=== PATIENT | female | born 1970 | race Hispanic/Latino ===

== ENCOUNTER 2024-06-09 17:16 | Emergency (ER) | payer SELFPAY ==
--- NOTE | 2024-06-09 17:17 | ED_ITS ---
HPI - General Adult General Chief complaint: Nausea/Vomiting/Diarrhea Stated complaint: vomiting Time Seen by Provider: 06/09/24 17:35 Source: patient, RN notes reviewed, old records reviewed and translator/interpreter (Hebrew) Mode of arrival: ambulatory Limitations: no limitations History of Present Illness HPI narrative: 53-year-old female presents to the [facility] with concerns of vomiting. Patient is a diabetic. Has not been able to eat, drink. Has been vomiting since last night. Blood sugar in clinic is 351 Patient reports generalized abdominal pain as well, not reproducible with palpation. Onset (ago): day(s) (1) Treatments prior to arrival: none Review of Systems Review of Systems: All systems reviewed & are unremarkable except as noted in HPI and below Constitutional: Constitutional: Reports no additional constitutional complaints ENT: Reports system reviewed and no additional complaints, except as documented Cardiovascular: Cardiovascular: Reports no additional cardiovascular complaints, Denies chest pain and Denies dyspnea Respiratory: Respiratory: Reports no additional respiratory complaints, Denies chest congestion, Denies cough and Denies dyspnea Gastrointestinal: Gastrointestinal: Reports as per HPI, Reports abdominal pain, Reports nausea and Reports vomiting Musculoskeletal: Musculoskeletal: Reports no additional musculoskeletal complaints Integumentary/Breasts: Skin/Breast: Reports system reviewed and no additional complaints, except as docu [facility] Past Medical History Medical History (Updated 06/09/24 @ 17:57 by Zohra Bellamy APRN) Diabetes Comments At the time of my signature, I reviewed and agree with the nursing past medical, surgical, social, and family history. There is no relevant family history pertinent to the patient complaint. Exam Const: General: cooperative, no acute distress, well developed, alert, ill appearing acutely and chronically, tired appearing, uncomfortable and well nourished Nutritional Appearance: well nourished Orientation/consciousness: patient oriented x3 Limitations: no limitations HENMT: Head: normal to inspection Ears: hearing grossly normal bilaterally and external ears normal Face/Nose/Sinus: Normal external nose present, normal facial exam and face symmetric Face and sinus: normal facial exam and face symmetric Eyes: General: appearance normal, both eyes and all related structures Alignment and Position: alignment normal Periorbital: periorbital findings normal Neck: Neck: normal visual inspection, full ROM, no lymphadenopathy and no meningeal signs Chest: Chest palpation & inspection: normal inspection of the chest Resp: Effort & Inspection: normal respiratory effort and able to speak in complete sentences Cardio: Rate: regular rate GI: GI Palp: No abdominal tenderness and Yes Soft to palpation Auscultation: normal bowel sounds Skin: General skin exam: normal color and no rashes or lesions noted Lesions: no lesions Rashes: no rashes Wounds: no wounds Neuro: General: patient oriented x3, gait normal, tone normal, moves all extremities and no meningeal signs Cognition (Neuro): normal cognition Speech: normal speech Gait exam (Neuro): Normal gait present Extrem: General: normal to inspection, full ROM, capillary refill normal and normal gait Psych: Appearance: grossly normal and well kempt Mental Status: mental status grossly normal Speech and movement: Normal speech and movement present and Clear speech present Affect: normal affect Attitude: cooperative Course Course Level of Care: Express Care Visit Vital Signs Vital signs: Vital Signs Temperature 99.1 F 06/09/24 17:29 Pulse Rate 98 06/09/24 17:29 Respiratory Rate 16 06/09/24 17:29 Blood Pressure 135/66 06/09/24 17:29 Pulse Oximetry 99 06/09/24 17:29 Oxygen Delivery Room Air 06/09/24 17:29 Temperature 99.1 F 06/09/24 17:29 Pulse Rate 98 06/09/24 17:29 Respiratory Rate 16 06/09/24 17:29 Blood Pressure 135/66 06/09/24 17:29 Pulse Oximetry 99 06/09/24 17:29 Oxygen Delivery Room Air 06/09/24 17:29 Reviewed Transfer Transfered to: [place] Transportation: Other (POV) Transfer rationale: Patient with history of diabetes, elevated blood sugar in clinic. Patient appears dehydrated, ill in appearance sending for higher level care rule out DKA Patient has been vomiting since last night unable to keep fluids down Accepting physician: Spoke with Dr. Stallworth Medical Decision Making [facility] Narrative Medical decision making narrative: Patient sitting in exam room. Patient does appear uncomfortable. Vitals stable. Patient presents for for vomiting, elevated blood sugar. Sending for higher level of care Transfer instructions reviewed with patient and family member to go directly to the ER. This was verbalized through the science interpreter All questions have been answered, and the patient deny any further questions Some parts of this dictation were generated by voice recognition software and may contain typographical and/or grammatical inaccuracies. Differential Diagnosis Differential Diagnosis: DKA, pancreatitis, cholecystitis, gastroenteritis Medical Records Medical records reviewed: Yes I reviewed the external patient's medical records. Vital Signs Vital Signs: Vital Signs Temperature 99.1 F 06/09/24 17:29 Pulse Rate 98 06/09/24 17:29 Respiratory Rate 16 06/09/24 17:29 Blood Pressure 135/66 06/09/24 17:29 Pulse Oximetry 99 06/09/24 17:29 Oxygen Delivery Room Air 06/09/24 17:29 Temperature 99.1 F 06/09/24 17:29 Pulse Rate 98 06/09/24 17:29 Respiratory Rate 16 06/09/24 17:29 Blood Pressure 135/66 06/09/24 17:29 Pulse Oximetry 99 06/09/24 17:29 Oxygen Delivery Room Air 06/09/24 17:29 Reviewed Lab Data Lab results reviewed: Yes I reviewed the patient's lab results. Labs: Lab Results 06/09/24 Range/Units 17:44 POC Capillary Glucose 351 H (65-105) mg/dl Reviewed Critical Care Time Critical Care Time Critical Care Time: No Discharge Plan Discharge Clinical Impression: Elevated blood sugar Vomiting Qualifiers: Vomiting type: unspecified Nausea presence: unspecified Qualified Code(s): R11.10 - Vomiting, unspecified Patient Disposition: Acute Care Hospital Condition: Guarded Prognosis Follow-up/Referrals: Eyad,ROSMERY Ty [Primary Care Provider] -
[2024-06-09 17:29] VITALS: BP 135/66; PULSE 98; RESP 16; TEMP 37.3; O2SAT 99
[2024-06-09 17:51] LABS: Glucose Point of Care 351 mg/dl (65-105)
== END 2024-06-09 17:51 | disposition short-term general hospital (02) ==
PROVIDERS: Emergency Provider Nurse Practitioner; PCP Physician Assistant Medical
DX: E11.65 Type 2 diabetes mellitus with hyperglycemia (principal); R11.10 Vomiting, unspecified
CPT/HCPCS: 82948; 99212; G0463

== ENCOUNTER 2024-06-09 18:10 | Emergency (ER) | payer SELFPAY ==
[2024-06-09 18:38] VITALS: BP 123/89; PULSE 110; RESP 18; TEMP 36.4; O2SAT 100
[2024-06-09 18:49] LABS: Glucose Point of Care 357 mg/dl (65-105)
--- NOTE | 2024-06-09 18:49 | ED.RECABL ---
HPI - Recheck/Abnormal Lab/Rx General Chief Complaint: Recheck/Abnormal Lab/Rx <Eloise Weber PA-C - Last Filed: 06/09/24 18:52> Stated Complaint: VOMITING HIGH BS <Eloise Weber PA-C - Last Filed: 06/09/24 18:52> Time Seen by Provider: 06/09/24 18:45 <Eloise Weber PA-C - Last Filed: 06/09/24 18:52> Focused HPI: Patient is a 53-year-old female who presents the ED with report of vomiting. Patient is primarily Azerbaijani-speaking. [employer] pediatric critical care nurse was utilized for assistance with translation. Reports she has had persistent vomiting since last night. Unable to keep down any food or drink. Reports having pain throughout her upper abdomen. Denies diarrhea, constipation, fevers. Patient is an insulin-dependent diabetic. States her blood sugars have been elevated. BG upon arrival 357. GENERAL: Well-appearing, well-nourished, and in no acute distress. HEAD: Normocephalic, atraumatic. CHEST: Clear to auscultation. ?No respiratory distress. HEART: Tachycardic with regular rhythm.? NEURO: ?Alert and oriented x3. Patient screened in triage and initial orders placed.? ?Additional care and disposition to be based upon?diagnostic testing and treatment. <Eloise Weber PA-C - Last Filed: 06/09/24 18:52> Focused HPI: Patient is a 53-year-old female who presents the ED with report of vomiting. Patient is primarily Azerbaijani-speaking. [employer] pediatric critical care nurse was utilized for assistance with translation. Reports she has had persistent vomiting since last night. Unable to keep down any food or drink. Reports having pain throughout her upper abdomen. Denies diarrhea, constipation, fevers. Patient is an insulin-dependent diabetic. States her blood sugars have been elevated. BG upon arrival 357. GENERAL: Well-appearing, well-nourished, and in no acute distress. HEAD: Normocephalic, atraumatic. CHEST: Clear to auscultation. ?No respiratory distress. HEART: Tachycardic with regular rhythm.? NEURO: ?Alert and oriented x3. Patient screened in triage and initial orders placed.? ?Additional care and disposition to be based upon?diagnostic testing and treatment. Agree with triage assessment. Patient is Azerbaijani-speaking and Azerbaijani interpretation services were used to obtain the history of present illness. <George Alejandro MD - Last Filed: 06/10/24 01:14> Source: patient <GARCIA Andrade Last Filed: 06/09/24 18:52> Mode of arrival: ambulatory <Eloise Weber PA-C - Last Filed: 06/09/24 18:52> Limitations: no limitations and language barrier <GARCIA Andrade Last Filed: 06/09/24 18:52> Related Data Allergies/Adverse Reactions: Allergies Allergy/AdvReac Type Severity Reaction Status Date / Time No Known Allergies Allergy Verified 06/09/24 18:05 <Eloise Weber PA-C - Last Filed: 06/09/24 18:52> PMFSH Past Medical History Medical History: Medical History (Updated 06/10/24 @ 01:02 by George Alejandro MD) Diabetes <GARCIA Andrade Last Filed: 06/09/24 18:52> Course Vital Signs Vital signs: Vital Signs Temperature 97.5 F L 06/09/24 18:38 Pulse Rate 110 H 06/09/24 18:38 Respiratory Rate 18 06/09/24 18:38 Blood Pressure 123/89 06/09/24 18:38 Pulse Oximetry 100 06/09/24 18:38 Temperature 97.5 F L 06/09/24 18:38 Pulse Rate 91 06/09/24 23:03 Respiratory Rate 20 06/09/24 23:03 Blood Pressure 128/60 06/09/24 23:03 Pulse Oximetry 99 06/09/24 23:03 <GARCIA Andrade Last Filed: 06/09/24 18:52> Vital Signs Temperature 97.5 F L 06/09/24 18:38 Pulse Rate 110 H 06/09/24 18:38 Respiratory Rate 18 06/09/24 18:38 Blood Pressure 123/89 06/09/24 18:38 Pulse Oximetry 100 06/09/24 18:38 Temperature 97.5 F L 06/09/24 18:38 Pulse Rate 91 06/09/24 23:03 Respiratory Rate 20 06/09/24 23:03 Blood Pressure 128/60 06/09/24 23:03 Pulse Oximetry 99 06/09/24 23:03 <George Alejandro MD - Last Filed: 06/10/24 01:14> MDM - Recheck/Abnormal Lab/Rx MDM Narrative Medical decision making narrative: MSE by MARJ in triage. <Eloise Weber PA-C - Last Filed: 06/09/24 18:52> MSE by MARJ in triage. The patient was evaluated by myself in the emergency department. History is obtained from patient who is an independent historian and physical exam was performed. External medical records were reviewed at this time. IV was established and pertinent tests were ordered. Patient was administered 4 mg of IV Zofran and 20 mg of IV Pepcid. EKG was obtained which revealed sinus rhythm rate of 98 beats per Min. No ST changes, T wave inversions or evidence of acute ischemia. EKG was independently interpreted by me and is currently pending official cardiology read. Laboratory results obtained revealing a leukocytosis of 12.2, glucose 375, hemoglobin A1c of 11.3%, beta hydroxybutyrate 1.39. No anion gap acidosis noted. Urinalysis revealed 3+ ketones and 3+ glucose. At this time patient was administered 2 L IV fluid bolus with normal saline. Patient declined any additional workup including imaging as she has been waiting for 6 hours and wants to go home. I did inform the patient that she needs at least get the IV fluids prior to discharge and patient is agreeable. She is currently denying any abdominal pain and denies any symptoms. Patient has had no vomiting episodes in the emergency department. Differential diagnosis considerations include diabetic ketoacidosis, dehydration, electrolyte derangements, infectious process such as pneumonia/urinary tract infection. Comorbidities impacting this visit include history of diabetes, poor control. Patient denies any history of DKA or any previous ICU admission regarding her diabetes. I have evaluated and discussed social determinants of health with the patient that could potentially impact subsequent diagnosis and treatment plans. On repeat assessment of the patient, reevaluation revealed that the patient is doing well and is in no acute distress. Patient symptoms have improved since she arrived to our emergency department. Repeat vital signs were all reviewed and noted to be stable. Differential diagnosis and treatment plan were discussed with the patient at bedside. Patient agrees with discussion and after shared medical decision making agrees with discharge. All questions were answered to the patient's satisfaction. Patient will follow up with her PCP in 3-5 days. Patient was informed that her diabetes is poorly controlled as noted by her hemoglobin A1c and this needs to be further evaluated by her primary care physician urgently and patient voices understanding. Patient was provided with strict return precautions and instructed to return to the emergency department if any new or worsening symptoms develop. The patient was discharged in stable condition. <George Alejandro MD - Last Filed: 06/10/24 01:14> Lab Data Result diagrams: 06/09/24 18:51 06/09/24 18:51 <Eloise Weber PA-C - Last Filed: 06/09/24 18:52> Labs: Lab Results 06/09/24 06/09/24 06/09/24 Range/Units 18:42 18:51 21:15 WBC 12.2 H (4.5-10.0) K/mm3 RBC 5.06 (4.2-5.4) M/mm3 Hgb 14.9 (12.0-15.0) g/dL Hct 45.2 (37.0-47.0) % MCV 89.3 (80-100) fl MCH 29.4 (26-34) pg MCHC 33.0 (32-36) g/dl RDW 13.2 (11.5-14.5) % Plt Count 354 (150-375) k/mm3 MPV 9.4 (7.4-10.4) fl Immature Gran % (Auto) 0.2 (0-0.5) % Neut % (Auto) 84.3 H (45.5-73.1) % Lymph % (Auto) 11.8 L (18.3-44.2) % Williamson % (Auto) 3.5 (2.6-8.5) % Eos % (Auto) 0.0 (0-4.4) % Baso % (Auto) 0.2 (0.2-1.2) % Lymph # (Auto) 1.44 (0.9-3.2) K/mm3 Williamson # (Auto) 0.4 (0.1-0.6) K/mm3 Eos # (Auto) 0.0 (0-0.3) K/mm3 Baso # (Auto) 0.0 (0.0-0.1) K/mm3 Abs Immat Gran (auto) 0.03 (0.00-0.031) K/mm3 Absolute Neuts (auto) 10.2 H (1.3-6.7) K/mm3 Absolute Nucleated RBC 0.000 (0.0-0.012) K/mm3 Nucleated RBC % 0.0 (0.0-0.2) % Sodium 137 (137-145) mmol/L Potassium 4.4 (3.4-5.0) mmol/L Chloride 100 (98-107) mmol/L Carbon Dioxide 25 (22-30) mmol/L Anion Gap 12 (4-12) mmol/L BUN 21 H (7-17) mg/dL Creatinine 0.60 L (0.7-1.0) mg/dL Estim Creat Clear Calc Not Reportable Estimated GFR > 60 (59 - ) Glucose 375 H (65-110) mg/dL POC Capillary Glucose 357 H (65-105) mg/dl Hemoglobin A1c 11.3 H (<5.7) % Lactic Acid 1.9 (0.7-2.0) mmol/L Calcium 9.6 (8.4-10.2) mg/dL Phosphorus 4.0 (2.5-4.5) mg/dL Magnesium 2.0 (1.6-2.3) mg/dL Total Bilirubin 1.5 H (0.2-1.3) mg/dL AST 21 (14-36) U/L ALT 20 (6-35) U/L Alkaline Phosphatase 142 H (38-126) U/L Troponin I < 0.012 (0.000-0.034) ng/mL Total Protein 9.0 H (6.3-8.2) g/dL Albumin 4.8 (3.5-5.1) g/dL Lipase 50 (23-300) U/L Beta-Hydroxybutyrate/Acetoacetate 1.39 H (0.02-0.27) mmol/L Urine Color Yellow (Yellow) Urine Appearance Clear (Clear) Urine pH 5.5 (5.0-9.0) Ur Specific [employer] > 1.045 H (1.001-1.035) Urine Protein 2+ H (Negative) mg/dL Urine Glucose (UA) 3+ H (Negative) mg/dL Urine Ketones 3+ H (Negative) mg/dL Ur Blood (Man) Negative (Negative) Urine Nitrate Negative (Negative) Urine Bilirubin Negative (Negative) Urine Urobilinogen 0.2 (<2.0) mg/dL Leukocyte Esterase Rfl Negative (Negative) NABIL/UL Urine RBC 0-2 (0-2) /hpf Urine WBC 0-5 (0-3) /hpf Ur Squamous Epith Cells Few (Few) /hpf Urine Bacteria None seen /hpf Urine Casts 0-2 POC Urine HCG, Qual (Negative) 06/09/24 Range/Units 21:17 WBC (4.5-10.0) K/mm3 RBC (4.2-5.4) M/mm3 Hgb (12.0-15.0) g/dL Hct (37.0-47.0) % MCV (80-100) fl MCH (26-34) pg MCHC (32-36) g/dl RDW (11.5-14.5) % Plt Count (150-375) k/mm3 MPV (7.4-10.4) fl Immature Gran % (Auto) (0-0.5) % Neut % (Auto) (45.5-73.1) % Lymph % (Auto) (18.3-44.2) % Williamson % (Auto) (2.6-8.5) % Eos % (Auto) (0-4.4) % Baso % (Auto) (0.2-1.2) % Lymph # (Auto) (0.9-3.2) K/mm3 Williamson # (Auto) (0.1-0.6) K/mm3 Eos # (Auto) (0-0.3) K/mm3 Baso # (Auto) (0.0-0.1) K/mm3 Abs Immat Gran (auto) (0.00-0.031) K/mm3 Absolute Neuts (auto) (1.3-6.7) K/mm3 Absolute Nucleated RBC (0.0-0.012) K/mm3 Nucleated RBC % (0.0-0.2) % Sodium (137-145) mmol/L Potassium (3.4-5.0) mmol/L Chloride (98-107) mmol/L Carbon Dioxide (22-30) mmol/L Anion Gap (4-12) mmol/L BUN (7-17) mg/dL Creatinine (0.7-1.0) mg/dL Estim Creat Clear Calc Estimated GFR (59 - ) Glucose (65-110) mg/dL POC Capillary Glucose (65-105) mg/dl Hemoglobin A1c (<5.7) % Lactic Acid (0.7-2.0) mmol/L Calcium (8.4-10.2) mg/dL Phosphorus (2.5-4.5) mg/dL Magnesium (1.6-2.3) mg/dL Total Bilirubin (0.2-1.3) mg/dL AST (14-36) U/L ALT (6-35) U/L Alkaline Phosphatase (38-126) U/L Troponin I (0.000-0.034) ng/mL Total Protein (6.3-8.2) g/dL Albumin (3.5-5.1) g/dL Lipase (23-300) U/L Beta-Hydroxybutyrate/Acetoacetate (0.02-0.27) mmol/L Urine Color (Yellow) Urine Appearance (Clear) Urine pH (5.0-9.0) Ur Specific [employer] (1.001-1.035) Urine Protein (Negative) mg/dL Urine Glucose (UA) (Negative) mg/dL Urine Ketones (Negative) mg/dL Ur Blood (Man) (Negative) Urine Nitrate (Negative) Urine Bilirubin (Negative) Urine Urobilinogen (<2.0) mg/dL Leukocyte Esterase Rfl (Negative) NABIL/UL Urine RBC (0-2) /hpf Urine WBC (0-3) /hpf Ur Squamous Epith Cells (Few) /hpf Urine Bacteria /hpf Urine Casts POC Urine HCG, Qual Negative (Negative) <Eloise Weber PA-C - Last Filed: 06/09/24 18:52> Lab Results 06/09/24 06/09/24 06/09/24 Range/Units 18:42 18:51 21:15 WBC 12.2 H (4.5-10.0) K/mm3 RBC 5.06 (4.2-5.4) M/mm3 Hgb 14.9 (12.0-15.0) g/dL Hct 45.2 (37.0-47.0) % MCV 89.3 (80-100) fl MCH 29.4 (26-34) pg MCHC 33.0 (32-36) g/dl RDW 13.2 (11.5-14.5) % Plt Count 354 (150-375) k/mm3 MPV 9.4 (7.4-10.4) fl Immature Gran % (Auto) 0.2 (0-0.5) % Neut % (Auto) 84.3 H (45.5-73.1) % Lymph % (Auto) 11.8 L (18.3-44.2) % Williamson % (Auto) 3.5 (2.6-8.5) % Eos % (Auto) 0.0 (0-4.4) % Baso % (Auto) 0.2 (0.2-1.2) % Lymph # (Auto) 1.44 (0.9-3.2) K/mm3 Williamson # (Auto) 0.4 (0.1-0.6) K/mm3 Eos # (Auto) 0.0 (0-0.3) K/mm3 Baso # (Auto) 0.0 (0.0-0.1) K/mm3 Abs Immat Gran (auto) 0.03 (0.00-0.031) K/mm3 Absolute Neuts (auto) 10.2 H (1.3-6.7) K/mm3 Absolute Nucleated RBC 0.000 (0.0-0.012) K/mm3 Nucleated RBC % 0.0 (0.0-0.2) % Sodium 137 (137-145) mmol/L Potassium 4.4 (3.4-5.0) mmol/L Chloride 100 (98-107) mmol/L Carbon Dioxide 25 (22-30) mmol/L Anion Gap 12 (4-12) mmol/L BUN 21 H (7-17) mg/dL Creatinine 0.60 L (0.7-1.0) mg/dL Estim Creat Clear Calc Not Reportable Estimated GFR > 60 (59 - ) Glucose 375 H (65-110) mg/dL POC Capillary Glucose 357 H (65-105) mg/dl Hemoglobin A1c 11.3 H (<5.7) % Lactic Acid 1.9 (0.7-2.0) mmol/L Calcium 9.6 (8.4-10.2) mg/dL Phosphorus 4.0 (2.5-4.5) mg/dL Magnesium 2.0 (1.6-2.3) mg/dL Total Bilirubin 1.5 H (0.2-1.3) mg/dL AST 21 (14-36) U/L ALT 20 (6-35) U/L Alkaline Phosphatase 142 H (38-126) U/L Troponin I < 0.012 (0.000-0.034) ng/mL Total Protein 9.0 H (6.3-8.2) g/dL Albumin 4.8 (3.5-5.1) g/dL Lipase 50 (23-300) U/L Beta-Hydroxybutyrate/Acetoacetate 1.39 H (0.02-0.27) mmol/L Urine Color Yellow (Yellow) Urine Appearance Clear (Clear) Urine pH 5.5 (5.0-9.0) Ur Specific [employer] > 1.045 H (1.001-1.035) Urine Protein 2+ H (Negative) mg/dL Urine Glucose (UA) 3+ H (Negative) mg/dL Urine Ketones 3+ H (Negative) mg/dL Ur Blood (Man) Negative (Negative) Urine Nitrate Negative (Negative) Urine Bilirubin Negative (Negative) Urine Urobilinogen 0.2 (<2.0) mg/dL Leukocyte Esterase Rfl Negative (Negative) NABIL/UL Urine RBC 0-2 (0-2) /hpf Urine WBC 0-5 (0-3) /hpf Ur Squamous Epith Cells Few (Few) /hpf Urine Bacteria None seen /hpf Urine Casts 0-2 POC Urine HCG, Qual (Negative) 06/09/24 Range/Units 21:17 WBC (4.5-10.0) K/mm3 RBC (4.2-5.4) M/mm3 Hgb (12.0-15.0) g/dL Hct (37.0-47.0) % MCV (80-100) fl MCH (26-34) pg MCHC (32-36) g/dl RDW (11.5-14.5) % Plt Count (150-375) k/mm3 MPV (7.4-10.4) fl Immature Gran % (Auto) (0-0.5) % Neut % (Auto) (45.5-73.1) % Lymph % (Auto) (18.3-44.2) % Williamson % (Auto) (2.6-8.5) % Eos % (Auto) (0-4.4) % Baso % (Auto) (0.2-1.2) % Lymph # (Auto) (0.9-3.2) K/mm3 Williamson # (Auto) (0.1-0.6) K/mm3 Eos # (Auto) (0-0.3) K/mm3 Baso # (Auto) (0.0-0.1) K/mm3 Abs Immat Gran (auto) (0.00-0.031) K/mm3 Absolute Neuts (auto) (1.3-6.7) K/mm3 Absolute Nucleated RBC (0.0-0.012) K/mm3 Nucleated RBC % (0.0-0.2) % Sodium (137-145) mmol/L Potassium (3.4-5.0) mmol/L Chloride (98-107) mmol/L Carbon Dioxide (22-30) mmol/L Anion Gap (4-12) mmol/L BUN (7-17) mg/dL Creatinine (0.7-1.0) mg/dL Estim Creat Clear Calc Estimated GFR (59 - ) Glucose (65-110) mg/dL POC Capillary Glucose (65-105) mg/dl Hemoglobin A1c (<5.7) % Lactic Acid (0.7-2.0) mmol/L Calcium (8.4-10.2) mg/dL Phosphorus (2.5-4.5) mg/dL Magnesium (1.6-2.3) mg/dL Total Bilirubin (0.2-1.3) mg/dL AST (14-36) U/L ALT (6-35) U/L Alkaline Phosphatase (38-126) U/L Troponin I (0.000-0.034) ng/mL Total Protein (6.3-8.2) g/dL Albumin (3.5-5.1) g/dL Lipase (23-300) U/L Beta-Hydroxybutyrate/Acetoacetate (0.02-0.27) mmol/L Urine Color (Yellow) Urine Appearance (Clear) Urine pH (5.0-9.0) Ur Specific [employer] (1.001-1.035) Urine Protein (Negative) mg/dL Urine Glucose (UA) (Negative) mg/dL Urine Ketones (Negative) mg/dL Ur Blood (Man) (Negative) Urine Nitrate (Negative) Urine Bilirubin (Negative) Urine Urobilinogen (<2.0) mg/dL Leukocyte Esterase Rfl (Negative) NABIL/UL Urine RBC (0-2) /hpf Urine WBC (0-3) /hpf Ur Squamous Epith Cells (Few) /hpf Urine Bacteria /hpf Urine Casts POC Urine HCG, Qual Negative (Negative) <George Alejandro MD - Last Filed: 06/10/24 01:14> Discharge Plan Discharge Clinical Impression: Nausea & vomiting, Hyperglycemia, Dehydration <Eloise Weber PA-C - Last Filed: 06/09/24 18:52> Patient Disposition: Home, Self-Care <Eloise Weber PA-C - Last Filed: 06/09/24 18:52> Condition: Improved <Eloise Weber PA-C - Last Filed: 06/09/24 18:52> Instructions: Antibiotic Form, Dehydration (DC), Diabetes and Nutrition (ED) <Eloise Weber PA-C - Last Filed: 06/09/24 18:52> Additional Instructions: Please follow-up with your family doctor within the next 3-5 days. You were informed that your diabetes is poorly controlled and this needs to be followed up. Return to the emergency department if any new or worsening symptoms develop. <Eloise Weber PA-C - Last Filed: 06/09/24 18:52> Follow-up/Referrals: Miguel,ROSMERY Ty [Primary Care Provider] - 3 Days <Eloise Weber PA-C - Last Filed: 06/09/24 18:52> Time of Disposition: 01:01 <Eloise Weber PA-C - Last Filed: 06/09/24 18:52> 01:01 <George Alejandro MD - Last Filed: 06/10/24 01:14>
--- NOTE | 2024-06-09 18:50 | ECG_ITS ---
Test Date: 2024-06-09 23:12:41 Measurements Intervals [place] Rate: 98 P: 60 MO: 137 QRS: 34 QRSD: 97 T: 30 QT: 326 QTc: 416 Interpretive Statements SINUS RHYTHM NORMAL ECG No previous ECG available for comparison Electronically Signed On 06-10-2024 06:14:32 DRAIN TECHNICIAN by Cody Gao D.O.
[2024-06-09 19:01] LABS: Basophils Percent Auto 0.2 % (0.2-1.2); Hematocrit 45.2 % (37.0-47.0); Hemoglobin 14.9 g/dL (12.0-15.0); Immature Granulocyte Absolute 0.03 K/mm3 (0.00-0.031); Immature Granulocyte Percent A 0.2 % (0-0.5); Lymphocytes Absolute Auto 1.44 K/mm3 (0.9-3.2); Lymphocytes Percent Auto 11.8 % (18.3-44.2); Mean Corpuscular Hemoglobin 29.4 pg (26-34); Mean Corpuscular Volume 89.3 fl (80-100); Mean Platelet Volume 9.4 fl (7.4-10.4); Monocytes Absolute Auto 0.4 K/mm3 (0.1-0.6); Monocytes Percent Auto 3.5 % (2.6-8.5); Neutrophils Absolute Auto 10.2 K/mm3 (1.3-6.7); Neutrophils Percent Auto 84.3 % (45.5-73.1); Platelet Count Result 354 k/mm3 (150-375); Red Blood Count 5.06 M/mm3 (4.2-5.4); Red Cell Distribution Width 13.2 % (11.5-14.5); White Blood Count 12.2 K/mm3 (4.5-10.0)
[2024-06-09 19:19] LABS: Beta-Hydroxybutyrate/Acetoacetate 1.39 mmol/L (0.02-0.27)
[2024-06-09 19:22] LABS: Alanine Aminotransferase 20 U/L (6-35); Albumin Level 4.8 g/dL (3.5-5.1); Alkaline Phosphatase 142 U/L (38-126); Anion Gap 12 mmol/L (4-12); Aspartate Amino Transferase 21 U/L (14-36); Bilirubin,Total 1.5 mg/dL (0.2-1.3); Blood Urea Nitrogen 21 mg/dL (7-17); Calcium 9.6 mg/dL (8.4-10.2); Carbon Dioxide 25 mmol/L (22-30); Chloride 100 mmol/L (98-107); Estimated Glomerular Filt Rate > 60; Glucose 375 mg/dL (65-110); Potassium 4.4 mmol/L (3.4-5.0); Sodium 137 mmol/L (137-145)
[2024-06-09 19:37] LABS: Hemoglobin A1C 11.3 % (<5.7)
[2024-06-09 19:45] LABS: Lactic Acid Reflex 1.9 mmol/L (0.7-2.0)
--- NOTE | 2024-06-09 20:59 | PC.NURSE ---
Lab called to add on ordered lipase and troponin.
[2024-06-09 21:14] LABS: Lipase 50 U/L (23-300)
[2024-06-09 21:19] LABS: BEDSIDEPREGUCG Negative (Negative)
[2024-06-09 21:27] LABS: Add Urine Microscopic? YES; Appearance Urine Clear (Clear); Bacteria Urine None Seen /hpf; Bilirubin Urine Negative (Negative); Blood Urine Negative (Negative); Color Urine Yellow (Yellow); Glucose Urine UA 3+ mg/dL (Negative); Ketones Urine 3+ mg/dL (Negative); Leukocyte Esterase Ur Negative LEU/UL (Negative); Nitrate Urine Negative (Negative); Non Pathogenic Casts 0-2; Protein Urine 2+ mg/dL (Negative); RBC Urine 0-2 /hpf (0-2); Specific Grav Ur > 1.045 (1.001-1.035); Squamous Epithelial Cell Urine Few /hpf (Few); Urobilinogen Urine 0.2 mg/dL (<2.0); WBC Urine 0-5 /hpf (0-3); pH Urine 5.5 (5.0-9.0)
[2024-06-09 21:28] LABS: Troponin I < 0.012 ng/mL (0.000-0.034)
[2024-06-09 23:03] VITALS: BP 128/60; PULSE 91; RESP 20; O2SAT 99
[2024-06-10 00:30] VITALS: BP 119/73; PULSE 67; RESP 13; O2SAT 99
[2024-06-10] MEDS: SODIUM CHLORIDE 0.9% IV 1,000 ML 999 ML IV CONT ×2 (01:36)
[2024-06-10] MEDS: ONDANSETRON INJ 4 MG/2 ML VIAL IV PUSH (01:37)
[2024-06-10] MEDS: FAMOTIDINE 20 MG/2 ML VIAL IV PUSH (01:37)
== END 2024-06-10 02:45 | disposition home or self-care (01) ==
PROVIDERS: Physician Assistant; Emergency Provider Emergency Medicine; PCP Physician Assistant Medical
DX: R11.2 Nausea with vomiting, unspecified (principal); E86.0 Dehydration; E11.65 Type 2 diabetes mellitus with hyperglycemia; Z79.4 Long term (current) use of insulin
CPT/HCPCS: 36415; 80053; 81001; 81025; 82010; 82948; 83036; 83605; 83690; 83735; 84100; 84484; 85025; 93005; 96361; 96374; 96375; 99284; J2405; J7030